=== PATIENT | male | born 1970 | race Caucasian/White ===

== ENCOUNTER 2023-09-03 09:02 | Day surgery (SDC) | payer OTHER ==
[~2023-09-03] VITALS: Ht 170.2 cm; Wt 70.8 kg
[2023-09-03] MEDS ORDERED: LIDOCAINE 2% 100 MG/5 ML UJET TP ONE (12:09)
[2023-09-03] MEDS ORDERED: fentaNYL citrate 0.05 MG/ML VIAL ONE (12:20)
[2023-09-03] MEDS: fentaNYL citrate 0.05 MG/ML VIAL IVP ONE (12:27)
[2023-09-03] MEDS: LIDOCAINE 2% 100 MG/5 ML UJET TP ONE (12:32)
== END 2023-09-03 13:52 | disposition home or self-care (01) ==
LOC: MDS 09:02 → MMU 09:03 → MDS 13:52
PROVIDERS: ATTEND Internal Medicine Gastroenterology
DX: Z12.11 Encounter for screening for malignant neoplasm of colon (principal); K57.30 Diverticulosis of large intestine without perforation or abscess without bleeding; E11.9 Type 2 diabetes mellitus without complications; F32.A Depression, unspecified; F17.210 Nicotine dependence, cigarettes, uncomplicated; M41.9 Scoliosis, unspecified; Z79.82 Long term (current) use of aspirin; Z79.84 Long term (current) use of oral hypoglycemic drugs; Z79.899 Other long term (current) drug therapy
CPT/HCPCS: 45378; 82948; J3010